=== PATIENT | female | born 1950 | race Caucasian/White ===

== ENCOUNTER 2022-07-18 11:29 | Emergency (ER) | payer MEDICARE, SELFPAY ==
[2022-07-18 11:39] VITALS: BP 146/70; PULSE 79; RESP 16; TEMP 36.5; O2SAT 99
--- NOTE | 2022-07-18 12:34 | ED.EAR ---
HPI - Ear Problem General Chief complaint: Ear Stated complaint: Rigth Ear Pain Source: patient Mode of arrival: ambulatory Limitations: no limitations History of Present Illness HPI Narrative: Patient presents for evaluation of right-sided ear pain. Symptom onset yesterday. She felt some fluid coming out of her ear and also noted drainage on her pillow this morning. She denies any fever, chills, nausea, vomiting, diarrhea. She has had a ?head cold? over the last few days. She smokes a quarter pack per day. Related Data Home Medications Medication Instructions Recorded Confirmed aspirin 325 mg tablet 325 mg PO DAILY 07/18/22 07/18/22 atorvastatin 20 mg tablet (Lipitor) 20 mg PO DAILY 07/18/22 07/18/22 atorvastatin 40 mg tablet 40 mg DAILY 07/18/22 07/18/22 famotidine 40 mg tablet 40 mg PRN 07/18/22 07/18/22 lisinopril 40 mg tablet 40 mg DAILY 07/18/22 07/18/22 metformin 1,000 mg tablet 1,000 mg DAILY 07/18/22 07/18/22 Allergies Allergy/AdvReac Type Severity Reaction Status Date / Time No Known Allergies Allergy Verified 07/18/22 11:46 Review of Systems Review of Systems: CONSTITUTIONAL: Denies fever, chills, or sweats. EYES: Denies visual changes, redness, or discharge. ENT: Reports right-sided ear pain and drainage. Denies sore throat. CARDIOVASCULAR: Denies chest pain, palpitations, or edema. RESPIRATORY: Denies cough or dyspnea. GASTROINTESTINAL: Denies abdominal pain, nausea, vomiting, or diarrhea. GENITOURINARY: Denies dysuria or hematuria. SKIN: Denies rash or itching. MUSCULOSKELETAL: Denies back pain, joint pain, or myalgia. NEUROLOGIC: Denies headache, numbness, dizziness, or weakness. PSYCHIATRIC: Denies anxiety or depression. [facility] Past Medical History Medical History (Updated 07/18/22 @ 12:36 by FLORES Cline, [place]) Hyperlipidemia Hypertension Surgical History Surgical History History of surgery for cerebral aneurysm Family History Family History Mother Family history non-contributory Social History Social History (Updated 07/18/22 @ 12:37 by Ismael Marcelino, [facility], ) Smoking packs per day: 0.25 Smoking cigarettes per day: 5.0 Smoking status: Current every day smoker Substance use: never Living arrangements: with family Gender identity (if verbalized by the patient): Female Spiritual care concerns: No Exam Narrative: GENERAL: Well-appearing, well-nourished, and in no acute distress. HEAD: Normocephalic, atraumatic. EYES: PERRLA and EOMI. ENT: Nares clear, no rhinorrhea or epistaxis. Mucous membranes moist. Oropharynx without tonsillar hypertrophy exudate or other lesions. Bilateral tympanic membrane erythema with effusion present. Right tympanic membrane is perforated NECK: Supple. No adenopathy or masses. No carotid bruits or JVD CHEST: Clear to auscultation. No respiratory distress. No wheezes rales or rhonchi HEART: Regular rate and rhythm. No murmur heard. Normal peripheral pulses. ABDOMEN: Soft, nontender, nondistended, normal active bowel sounds. EXTREMITIES: Normal range of motion. No edema. SKIN: Warm, dry, no rash. NEURO: No focal deficits. Alert and oriented x3. PSYCH: Normal mood and affect. Course Course Emergency Course: This is a 72-year-old female who presented for evaluation of right sided ear pain and drainage. On exam she has evidence of otitis media with rupture of the right TM. Will discharge with Augmentin and ofloxacin. Follow up with primary provider. Go to the ER for worsening symptoms. Patient in agreement with plan of care. Level of Care: Express Care Visit Vital Signs Vital signs: Vital Signs Temperature 36.5 C 07/18/22 11:39 Pulse Rate 79 07/18/22 11:39 Respiratory Rate 16 07/18/22 11:39 Blood Pressure 146/70 H 07/18/22 11:39 Pulse Oximetry 99 07/18/22 11:39 Oxygen Delivery
== END 2022-07-18 12:47 | disposition home or self-care (01) ==
PROVIDERS: Emergency Provider Nurse Practitioner; PCP Family Medicine
DX: H66.91 Otitis media, unspecified, right ear (principal); H72.91 Unspecified perforation of tympanic membrane, right ear; F17.210 Nicotine dependence, cigarettes, uncomplicated; E78.5 Hyperlipidemia, unspecified; I10 Essential (primary) hypertension; Z79.82 Long term (current) use of aspirin
CPT/HCPCS: 99213; G0463

== ENCOUNTER 2023-08-26 09:29 | Emergency (ER) | payer MEDICARE, SELFPAY ==
[2023-08-26 09:35] VITALS: BP 143/74; PULSE 100; RESP 20; TEMP 37.1; O2SAT 100
--- NOTE | 2023-08-26 09:56 | ED.URI ---
HPI - URI/Sore Throat General Chief Complaint: Upper Respiratory Infection Stated Complaint: Congestion/cough/ears Time Seen by Provider: 08/26/23 09:43 Source: patient and RN notes reviewed Mode of arrival: ambulatory Limitations: no limitations History of Present Illness HPI Narrative: Patient presents today complaining of 11 day history of nasal congestion, cough, rhinorrhea, postnasal drip. States symptoms have been worsening since onset. Last night she developed right ear pain, states the pain has resolved but is now clogged. She has tried Zyrtec and Tylenol with some mild relief. Denies shortness of breath or fever. Related Data Home Medications Medication Instructions Recorded Confirmed aspirin 325 mg tablet 325 mg PO DAILY 07/18/22 07/18/22 atorvastatin 20 mg tablet (Lipitor) 20 mg PO DAILY 07/18/22 07/18/22 atorvastatin 40 mg tablet 40 mg DAILY 07/18/22 07/18/22 famotidine 40 mg tablet 40 mg PRN 07/18/22 07/18/22 lisinopril 40 mg tablet 40 mg DAILY 07/18/22 07/18/22 metformin 1,000 mg tablet 1,000 mg DAILY 07/18/22 07/18/22 Allergies Allergy/AdvReac Type Severity Reaction Status Date / Time No Known Allergies Allergy Verified 07/18/22 11:46 Review of Systems Review of Systems: CONSTITUTIONAL: Denies body aches, fever, chills, or sweats. EYES: Denies visual changes, redness, or discharge. ENT: Denies sore throat. + congestion, rhinorrhea, right ear pain, clogging, postnasal drip CARDIOVASCULAR: Denies chest pain, palpitations, or edema. RESPIRATORY: Denies dyspnea.+ cough GASTROINTESTINAL: Denies abdominal pain, nausea, vomiting, or diarrhea. GENITOURINARY: Denies dysuria or hematuria. SKIN: Denies rash, itching, or wounds. MUSCULOSKELETAL: Denies back pain, joint pain, or myalgia. NEUROLOGIC: Denies headache, numbness, tingling, or weakness. PSYCH: Denies depression or anxiety. [facility] Past Medical History Medical History Hyperlipidemia Hypertension Surgical History Surgical History History of surgery for cerebral aneurysm Family History Family History Mother Family history non-contributory Social History Social History Smoking packs per day: 0.25 Smoking cigarettes per day: 5.0 Smoking status: Current every day smoker Substance use: never Living arrangements: with family Gender identity (if verbalized by the patient): Female Spiritual care concerns: No Comments At time of signature, I have reviewed and agree with nursing past medical, surgical, social and family history unless otherwise noted. Please see nursing chart for further information. There is no relevant family history pertinent to the presenting complaint Exam Narrative: GENERAL: Well-appearing, well-nourished, and in no acute distress. HEAD: Normocephalic, atraumatic. EYES: EOMI. No redness or drainage. Conjunctivae normal. ENT: Mucous membranes pink and moist. Nares congested. No rhinorrhea. Left TM normal. Right TM erythematous with moderate to large amount of white purulent bubbling discharge in the ear canal.. Throat normal. Uvula midline. NECK: Normal AROM. Supple. No lymphadenopathy. CHEST: No respiratory distress. Clear to auscultation. Harsh cough noted HEART: Regular rate and rhythm. No murmur appreciated. EXTREMITIES: Normal range of motion. No edema. SKIN: Warm, dry, no rash. Capillary refill normal. Normal skin turgor. NEURO: No focal deficits. Alert and oriented x3. Gait steady. PSYCH: Normal affect. No signs of depression or anxiety. Course Course Level of Care: Express Care Visit Vital Signs Vital signs: Vital Signs Temperature 98.8 F 08/26/23 09:35 Pulse Rate 100 08/26/23 09:35 Respiratory Rate 20 08/26/23 09:35 Blo
== END 2023-08-26 10:05 | disposition home or self-care (01) ==
PROVIDERS: Emergency Provider Nurse Practitioner; PCP Family Medicine
DX: J40 Bronchitis, not specified as acute or chronic (principal); H66.001 Acute suppurative otitis media without spontaneous rupture of ear drum, right ear; J01.90 Acute sinusitis, unspecified; F17.210 Nicotine dependence, cigarettes, uncomplicated; E78.5 Hyperlipidemia, unspecified; I10 Essential (primary) hypertension
CPT/HCPCS: 99213; G0463